=== PATIENT | female | born 1950 | race Caucasian/White ===

== ENCOUNTER → 2020-07-13 11:01 | Outpatient (CLI) | payer MEDICARE, SELFPAY ==
--- NOTE | ~2020-07-13 | MM_ITS ---
EXAMINATION: MM screening [facility] BI [facility] HISTORY: Screening TECHNIQUE: Craniocaudal and mediolateral oblique 3-D tomosynthesis images were obtained and synthetic 2-D images were generated. CAD analysis was submitted and interpreted. COMPARISON: Comparison to multiple prior studies sequentially, with oldest reviewed study dated 07/05. BREAST PARENCHYMAL COMPOSITION: There are scattered areas of fibroglandular density. FINDINGS: There is no evidence of suspicious mass, calcification, or architectural distortion to sugg est malignancy in either breast. There has been no suspicious interval change. IMPRESSION: 1. No mammographic evidence of malignancy. 2. Recommend routine screening mammography in one year. BI-RADS Category 1: Negative Reviewed, dictated and finalized at location A.
== END ==
PROVIDERS: PCP Family Medicine; Visit Provider Family Medicine
DX: Z12.31 Encounter for screening mammogram for malignant neoplasm of breast (principal)
CPT/HCPCS: 77063; 77067

== ENCOUNTER → 2021-09-12 11:58 | Outpatient (CLI) | payer MEDICARE, SELFPAY ==
--- NOTE | ~2021-09-12 | MM_ITS ---
EXAMINATION: MM screening [facility] BI w [facility]ya HISTORY: Screening TECHNIQUE: Craniocaudal and mediolateral oblique 3-D tomosynthesis images were obtained and synthetic 2-D images were generated. CAD analysis was submitted and interpreted. COMPARISON: Comparison to multiple prior studies sequentially, with oldest reviewed study dated 07/05. BREAST PARENCHYMAL COMPOSITION: Breast composed of scattered areas of fibroglandular density FINDINGS: There is no evidence of suspicious mass, calcification, or architectural distortion to sugg est malignancy in either breast. There has been no suspicious interval change. IMPRESSION: 1. No mammographic evidence of malignancy. 2. Recommend routine screening mammography in one year. BI-RADS Category 1: Negative Reviewed, dictated and finalized at location A.
== END ==
PROVIDERS: PCP Family Medicine; Visit Provider Family Medicine
DX: Z12.31 Encounter for screening mammogram for malignant neoplasm of breast (principal)
CPT/HCPCS: 77063; 77067

== ENCOUNTER 2022-08-27 10:00 | Outpatient (RCR) | payer MEDICARE, SELFPAY ==
--- NOTE | 2022-07-30 14:42 | PTOPEVAL1 ---
Assessment and note entered by Connie Rudolph, PT, DPT Evaluation Information Assessment Status Evaluation Diagnosis neck pain Onset 4-5 months Subjective Information Pt reports a 4-5 month history of neck pain with cervical rotation. She states she has a soft tissue knot on her R side that she was told by one provider that it is a lymph node, and by another that it is a knotted muscle. She declines headaches and pain at rest. She reports a 7/10 with active motion, she states this is the only thing that increases her pain. Reported Pain Level Pain Score 0: Self Report Assessment PT Clinical Summary Anna presents to therapy today for her initial evaluation with a diagnosis of neck pain. Today she demonstrates decreased cervical ROM in all direction, increased soft tissue density, and postural abnormalities. Her UE ROM and strength are both WNL and do not affect her pain. Skilled physical therapy services are indicated to improve ROM, mechanics, soft tissue extensibility, and to return to PLOF. Plan of Care Interventions Electrical Stimulation,Hot Pack/Cold Pack,Manual Therapy,Neuro Re-education,Patient/Caregiver Educati,Therapeutic Activities,Therapeutic Exercise PT Services Indicated Yes Treatment Frequency and 1x/wk for 4 wks Duration These treatments will address the objective and functional deficits as defined above. The patient will be advanced safely and appropriately in order for the patient to progress towards his/her prior level of function. Additional exercises will be introduced and as well as a comprehensive home exercise program upon discharge, if needed, ?to ensure carryover of functional gains achieved in the clinic. This treatment plan has been reviewed and agreement upon by the patient.
--- NOTE | 2022-07-31 08:06 | OPREHPOC ---
Outpatient Therapy Plan of Care This is a Multidisciplinary Plan of Care that may contain components documented by all disciplines (PT, OT, and ST.) PT Problem 1 PT Problem #1 Knowledge Deficit PT Goal 1 Goal Pt to be IND with issued HEP Target Visit 4 PT Problem 2 PT Problem #2 Impaired Range of Motion PT Goal 1 Goal Pt to increase active cervical lateral flexion to 25 deg sabi Target Visit 4 PT Goal 2 Goal Pt to increase active cervical rotation ROM to 60 deg sabi Target Visit 4 PT Problem 3 PT Problem #3 Pain PT Goal 1 Goal Pt to report neck pain no greater than 3/10 in the last week Target Visit 4 PT Goal 2 Goal Pt to report 75% improvement in overall symptoms
--- NOTE | 2022-08-15 09:01 | PCPTNOTE ---
Patient called & cancelled scheduled appointment this date, no reason given.
--- NOTE | 2022-08-15 09:33 | PCPTNOTE ---
On 08/15/22, the student Krystle Culp, completed [facility] documentation on this patient. I have reviewed the student's documentation and agree with the findings.
--- NOTE | 2022-08-27 10:32 | PTOPDC ---
Assessment and note entered by Connie Rudolph, PT, DPT Evaluation Information Assessment Status Discharge Diagnosis neck pain Onset 4-5 months Subjective Information Pt states after coming to therapy, the next day she feels pretty good and feel good when she takes Tylenol throughout the day. She states the rest of the time there is just a pressure. She reports 0/10 pain at rest, 3/10 with active movement, and 8/10 at the worst. She states overall she might be a little better but it is not gone. Reported Pain Level Pain Score 0: Self Report Assessment PT Clinical Summary Anna presents to therapy today for her progress report following 4 visits of skilled therapy to treat her diagnosis of neck pain. Today she continues to demonstrate significantly decreased cervical ROM in all direction, increased soft tissue density, and postural abnormalities. She made no improvements in her pain reports now her active cervical motion. Pt would like to try other treatment option, discussed option with pt. She will be discharged from skilled therapy services at this time. Plan of Care PT Services Indicated No
== END 2022-08-28 13:47 | disposition home or self-care (01) ==
LOC: ANHGOSHPT 10:00
PROVIDERS: PCP Family Medicine; Visit Provider Family Medicine
DX: M54.2 Cervicalgia (principal)
CPT/HCPCS: 97110; 97140; 97161

== ENCOUNTER → 2022-09-20 11:36 | Outpatient (CLI) | payer MEDICARE, SELFPAY ==
--- NOTE | ~2022-09-20 | DEXA_ITS ---
Bone Density Report Name: BEVERLEY LARSON Age: 72 Sex: Female Ethnicity: White Date of : 1950 Indication: postmenopausal; screening for osteoporosis; hysterectomy; Referring Provider: WILLIAM CARRILLO Study: Bone densitometry was performed. Exam Date: September 20, 2022 Accession number: [id number] Bone Density: Region BMD T-score Z-score Classification AP Spine (L1-L4) 1.114 0.6 2.9 Normal Femoral Neck (Left) 0.748 -0.9 1.1 Normal Total Hip (Left) 0.926 -0.1 1.5 Normal Femoral Neck (Right) 0.722 -1.1 0.8 Osteopenia Total Hip (Right) 0.833 -0.9 0.8 Normal Total Hip Mean 0.880 -0.5 1.2 Normal World Health Organization criteria for BMD impression classify patients as: Normal (T-score at or above -1.0), Osteopenia (T-score between -1.0 and -2.5), or Osteoporosis (T-score at or below -2.5). 10-year Fracture Risk(1): Major Osteoporotic Fracture 8.8% Hip Fracture 1.1% Reported Risk Factors: [place] (), Neck BMD=0.722, BMI=37.8 (1) FRAX(R) Version 3.08. Fracture probability calculated for an untreated patient. Fracture probability may be lower if the patient has received treatment. Previous Exams: Region Exam Age BMD T-score BMD Change BMD Change Date g/cm2 vs Baseline vs Previous AP Spine(L1-L4) 09/20/2022 72 1.114 0.6 0.034 0.034 07/18/2017 66 1.080 0.3 Total Hip(Left) 09/20/2022 72 0.926 -0.1 -0.040 -0.040 07/18/2017 66 0.966 0.2 Total Hip(Right) 09/20/2022 72 0.833 -0.9 -0.067 -0.067 07/18/2017 66 0.900 -0.3 *Denotes significance at 95% confidence level, LSC for AP Spine = 0.022 g/cm2, LSC for Total Hip = 0.027 g/cm2 Clinical Information Provided by Patient: Has used the following medications: Vitamin D, Desi Has the following medical conditions: Hysterectomy Patient maximum height was 63 Menopause Age: 21 Drinks caffeinated beverages Onset of menses at age 10.5 Number of children 1 Impression: The patient has low bone mass, based on the Right Femoral Neck T-score. The patient has an estimated ten-year risk of hip fracture of 1.1% and an estimated ten-year risk of major fracture of 8.8%, based on the WHO FRAX algorithm. No significant bone loss was observed. Discussion: BONE DENSITY IS LOW AT ONE OR MORE SKELETAL SITES. This patient's lowest T-score is low at one or more skeletal sites. It meets the World Health Organization's (WHO) c
--- NOTE | ~2022-09-20 | MM_ITS ---
EXAMINATION: MM screening [facility] BI w nya HISTORY: Screening mammogram TECHNIQUE: Craniocaudal and mediolateral oblique 3-D tomosynthesis images were obtained and synthetic 2-D images were generated. CAD analysis was submitted and interpreted. COMPARISON: 09/12/2021, 07/13/2020, 07/21/2018 BREAST PARENCHYMAL COMPOSITION: There are scattered areas of fibroglandular density. FINDINGS: No suspicious mass, calcification, or architectural distortion are identified in either tony ast to suggest malignancy. There has been no suspicious interval change. IMPRESSION: 1. No mammographic evidence of malignancy. 2. Recommend routine screening mammography in one year. BI-RADS Category 1: Negative Reviewed, dictated and finalized at location A.
== END ==
PROVIDERS: PCP Family Medicine; Visit Provider Family Medicine
DX: Z12.31 Encounter for screening mammogram for malignant neoplasm of breast (principal); M85.88 Other specified disorders of bone density and structure, other site; Z78.0 Asymptomatic menopausal state
CPT/HCPCS: 77063; 77067; 77080

== ENCOUNTER → 2022-10-11 08:44 | Outpatient (CLI) | payer MEDICARE, SELFPAY ==
--- NOTE | ~2022-10-11 | CT_ITS ---
EXAMINATION: CT cervical spine wo con DATE: 10/11/2022 09:02 INDICATION: Cervical spondylosis without myelopathy or radiculopathy. Neck pain. TECHNIQUE: Computed tomography (CT) of the cervical spine was performed without intravenous contrast. Automated exposure control and iterative reconstruction technique were employed. The dose-length pro duct was 345.68 mGy-cm. COMPARISON: None FINDINGS: There is 2 mm anterolisthesis of C3 on C4 and C7 on T1. There is 3 degrees dextrocurvature of cervical spine. Vertebral body heights are normal. There is mildly decreased disc height at C3-C4, severely decreased disc height from C4-C5 through C6-C7, and moderately decreased disc height at C7- T1. The following disc levels are specifically discussed: C2-C3: There is no uncovertebral joint osteoarthritis. There is severe bilateral facet joint osteoart hritis. There is no neural foraminal stenosis. There is no central canal stenosis. C3-C4: There is mild bilateral uncovertebral joint osteoarthritis. There is severe bilateral facet rodrigo int osteoarthritis. There is mild bilateral neural foraminal stenosis. There is no central canal sten osis. C4-C5: There is severe bilateral uncovertebral joint osteoarthritis. There is mild bilateral facet rodrigo int osteoarthritis. There is mild bilateral neural foraminal stenosis. There is mild central canal st enosis. C5-C6: There is severe bilateral uncovertebral joint osteoarthritis. There is mild bilateral facet rodrigo int osteoarthritis. There is mild bilateral neural foraminal stenosis. There is mild central canal st enosis. C6-C7: There is severe right and moderate left uncovertebral joint osteoarthritis. There is mild bila teral facet joint osteoarthritis. There is mild right neural foraminal stenosis. There is mild centra l canal stenosis. C7-T1: There is no uncovertebral joint osteoarthritis. There is severe bilateral facet joint osteoart hritis. There is mild bilateral neural foraminal stenosis. There is no central canal stenosis. IMPRESSION: 1. Severe cervical spondylosis. Reviewed, dictated and finalized at location E.
== END ==
PROVIDERS: PCP Nurse Practitioner Family; Visit Provider Nurse Practitioner Family
DX: M47.812 Spondylosis without myelopathy or radiculopathy, cervical region (principal)
CPT/HCPCS: 72125

== ENCOUNTER 2023-07-04 08:09 | Emergency (ER) | payer MEDICARE, SELFPAY ==
--- NOTE | ~2023-07-04 | XR_ITS ---
EXAMINATION: XR ankle RT min 3V DATE: 07/04/2023 08:29 INDICATION: Right ankle injury and pain. TECHNIQUE: 4 views of right ankle were obtained. COMPARISON: None. FINDINGS: Bone alignment is normal. No fracture. There is mild midfoot osteoarthritis. There are enth esophytes at the posterior and plantar aspects of calcaneal tuberosity. Ankle soft tissue swelling is noted. IMPRESSION: 1. No fracture. Reviewed, dictated and finalized at location A. IMPRESSION: 1. No fracture.
--- NOTE | 2023-07-04 08:14 | ED.LOWEXIN ---
HPI - Extremity Injury (Lower) General Chief Complaint: Extremity Injury, Lower Stated Complaint: Right Ankle Pain Time Seen by Provider: 07/04/23 08:11 Source: patient Mode of arrival: ambulatory Limitations: no limitations History of Present Illness HPI Narrative: Mariana is a 72-year-old female patient presenting to the clinic today with complaints of right ankle pain x1.5-2 weeks. She reports she tripped and inverted her ankle at that time. States she is having increase in swelling in her ankle and pain is worse at night. States the pain is a throbbing pain with pain radiating up and to the distal fibula. Mild swelling noted over the lateral ankle. Related Data Home Medications Medication Instructions Recorded Confirmed calcium carbonate (Calcium 600) 600 mg PO BID 09/30/22 07/04/23 magnesium chloride 71.5 mg 71.5 mg PO DAILY PRN Pain, Mild 09/30/22 07/04/23 (magnesium chloride) tablet,delayed release (Slow-Mag) Allergies Allergy/AdvReac Type Severity Reaction Status Date / Time penicillin G Allergy Mild Rash Verified 07/04/23 08:28 amoxicillin Allergy Unknown Rash Verified 07/04/23 08:28 Penicillins Allergy Unknown Rash Verified 07/04/23 08:28 Review of Systems Review of Systems: Pertinent positives per HPI. Patient denies any fever, chills, rash, headache, visual changes, dizziness, cough, runny nose, sore throat, shortness of breath, chest pain, palpitations, nausea, vomiting, diarrhea, constipation, abdominal pain, or any urinary issues. 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 She and her live in [place] for winter, return in April. 02/10/ Smoking packs per day: 0.1 Smoking cigarettes per day: 2.0 Years smoked: 5 Smoking pack-years: 0.50 Smoking status: Former smoker Second hand tobacco smoke exposure: No Alcohol intake: never Substance use: never Substance use type: does not use Lack of Transportation: No Lack of Food: Never True Current Housing: I Have Housing Concerned About Future Housing: No Difficulty Paying Gas/Electric Bills: No Difficulty Paying for Meds: No Currently Unemployed: No Education: High School Diploma/GED Difficulty w/ Childcare or Family Care: No Living arrangements: with family Additional living arrangements comments: Occupation/Education: occupation 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 There is no relevant family history pertinent to the patient complaint. Exam Narrative: General: Well-developed, well nourished, in no apparent distress Head: Normocephalic, atraumatic. Cardio: Regular rate and rhythm, s1 and s2 normal, no murmur appreciated. Resp: Clear to auscultation bilaterally, no rhonchi, rales, wheezing or rubs. Musculoskeletal: No deformity swelling noted over the lateral right ankle, tenderness to palpation over the right lateral ankle, pain with dorsal flexion against resistance, valgus, and varus maneuvers however no laxity was seen, grossly normal range of motion, muscle strength strong and equal, peripheral pulse strong, no cyanosis
[2023-07-04 08:20] VITALS: BP 148/80; PULSE 78; RESP 16; TEMP 36.8; O2SAT 100
== END 2023-07-04 08:40 | disposition home or self-care (01) ==
PROVIDERS: Emergency Provider Nurse Practitioner Family; PCP Nurse Practitioner Family
DX: S93.401A Sprain of unspecified ligament of right ankle, initial encounter (principal); X50.9XXA Other and unspecified overexertion or strenuous movements or postures, initial encounter; I10 Essential (primary) hypertension; Z87.891 Personal history of nicotine dependence
CPT/HCPCS: 73610; 99213; G0463

== ENCOUNTER 2023-07-24 09:25 | Outpatient (CLI) | payer MEDICARE, SELFPAY ==
--- NOTE | ~2023-07-24 | MR_ITS ---
MRI of the right ankle Clinical history: Pain Technique: Coronal proton-density and proton-density fat-sat images, axial proton-density and proton- density fat-sat images, and sagittal proton-density and proton-density fat-sat images were acquired. Findings: Syndesmotic ligaments are intact. Anterior and posterior talofibular ligaments, and calcane ofibular ligament are intact. Deltoid ligament is intact. Medial flexor tendons, anterior extensor tendons, and Achilles tendon are intact. There is severe hyp ertrophic partial thickness tearing and tendinosis of the peroneus longus and brevis tendons, without evidence of complete rupture. There is tenosynovitis of the peroneal tendon sheaths as well. There is no osteochondral lesion of the talar dome. Bone marrow signals and joint spaces are relative ly intact. There is focal subchondral cyst at the base of the third metatarsal with focal underlying degenerative change of the third TMT joint. No significant joint effusion. Plantar fascia intact. Normal signal preserved in the sinus Tarsi. Impression: Severe hypertrophic type tendinosis and partial-thickness tearing of the peroneus longus and brevis t endons, without complete rupture. Superimposed tenosynovitis of the peroneal tendon sheaths. Focal degenerative change of the third TMT joint. Reviewed, dictated and finalized at location M. Impression: Severe hypertrophic type tendinosis and partial-thickness tearing of the perone us longus and brevis tendons, without complete rupture. Superimposed tenosynovitis of the peroneal tendon sheaths. Focal degenerative change of the third TMT joint.
== END 2023-07-24 09:26 ==
LOC: MICIMG 09:26
PROVIDERS: PCP Nurse Practitioner Family; Visit Provider Nurse Practitioner
DX: M25.571 Pain in right ankle and joints of right foot (principal); M65.9 Synovitis and tenosynovitis, unspecified
CPT/HCPCS: 73721

== ENCOUNTER 2023-08-11 10:10 | Emergency (ER) | payer MEDICARE, SELFPAY ==
[2023-08-11 10:21] VITALS: BP 128/71; PULSE 78; RESP 18; TEMP 37.8; O2SAT 99
--- NOTE | 2023-08-11 10:38 | ED.URI ---
HPI - URI/Sore Throat General Chief Complaint: Upper Respiratory Infection Stated Complaint: Cough,Sneezing Source: patient and RN notes reviewed Mode of arrival: ambulatory Limitations: no limitations History of Present Illness HPI Narrative: 73 year old female presented for complaint of nasal congestion and drainage, Sneezing, and cough over the past 3 days. She denies shortness of breath, wheezing, nausea, vomiting, diarrhea, fevers or chills. She has not taken anything for symptoms. MD elicited complaint: cough Related Data Home Medications Medication Instructions Recorded Confirmed calcium carbonate (Calcium 600) 600 mg PO BID 09/30/22 08/11/23 magnesium chloride 71.5 mg 71.5 mg PO DAILY PRN Pain, Mild 09/30/22 08/11/23 (magnesium chloride) tablet,delayed release (Slow-Mag) Allergies Allergy/AdvReac Type Severity Reaction Status Date / Time amoxicillin Allergy Intermediate Rash Verified 08/11/23 10:22 Penicillins Allergy Intermediate Rash Verified 08/11/23 10:22 Review of Systems Review of Systems: CONSTITUTIONAL: denies malaise, chills, sweats, fever EYES: Denies visual changes, redness, or discharge ENT: Reports rhinorrhea, congestion, sinus pain,denies otalgia, sore throat CARDIOVASCULAR: Denies chest pain, palpitations, edema RESPIRATORY: Reports cough, post nasal drainage. Denies dyspnea GASTROINTESTINAL: Denies abdominal pain, nausea, vomiting, diarrhea SKIN: Denies rash or itching MUSCULOSKELETAL: deneis myalgia NEUROLOGIC: Denies headache PMFSH Past Medical History Medical History Dermatitis Elevated fasting glucose Essential (primary) hypertension Itch Neck Pain Vitamin D deficiency Surgical History Surgical History H/O: hysterectomy (~1971) Family History Family History Sibling Cerebrovascular accident Family history of diabetes mellitus in first degree relative Mother Family history of diabetes mellitus in first degree relative Social History Social History 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 She and her live in [place] for winter, return in April. 1/1/ caffeine 1 cup coffee Smoking packs per day: 0.1 Smoking cigarettes per day: 2.0 Years smoked: 5 Smoking pack-years: 0.50 Smoking status: Former smoker Second hand tobacco smoke exposure: No Alcohol intake: never Substance use: never Substance use type: does not use Do You Feel Safe in your Home?: Yes Lack of Transportation: No Lack of Food: Never True Current Housing: I Have Housing Concerned About Future Housing: No Difficulty Paying Gas/Electric Bills: No Difficulty Paying for Meds: No Currently Unemployed: No Education: High School Diploma/GED Difficulty w/ Childcare or Family Care: No Living arrangements: with family Additional living arrangements comments: Occupation/Education: occupation 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 nasal congestion noted. TM pearly hutton with dull light reflex bilaterally; no tragal tenderness. Oropharynx Not erythematous without lesions or exudate, no drooling, no hoarseness, no trismus, uvula midline. No tripod positioning, muffled voice, soft palate or pharyngeal wall bulging NECK: Supple. No lymphadenopathy CHEST: Clear to auscultation, breath sounds equal. No wheezing, rhonchi, rales, or stridor. No respiratory distress, speaks in full sentences. HEART: Regular rate and rhythm. No murmur heard. SKIN: Warm, dry, no rash. NEURO: Alert and oriented x3. PSYCH: Normal mood and affect Course Course Emergency Cours
[2023-08-11 12:05] LABS: EDINFLUASCREEN Negative; EDINFLUBSCREEN Negative; EDSTREPNEGPOS1 Presumptive Negative
== END 2023-08-11 11:16 | disposition home or self-care (01) ==
PROVIDERS: Emergency Provider Nurse Practitioner Family; PCP Nurse Practitioner Family
DX: J06.9 Acute upper respiratory infection, unspecified (principal); Z20.822 Contact with and (suspected) exposure to COVID-19; Z87.891 Personal history of nicotine dependence; I10 Essential (primary) hypertension
CPT/HCPCS: 87081; 87426; 87804; 87880; 99213; G0463

== ENCOUNTER 2023-10-29 11:41 | Outpatient (CLI) | payer MEDICARE, SELFPAY ==
--- NOTE | ~2023-10-29 | MM_ITS ---
EXAMINATION: MM screening [facility] BI w nya HISTORY: Screening mammogram TECHNIQUE: Craniocaudal and mediolateral oblique 3-D tomosynthesis images were obtained and synthetic 2-D images were generated. CAD analysis was submitted and interpreted. COMPARISON: 09/20/2022, 09/12/2021, 07/13/2020 BREAST PARENCHYMAL COMPOSITION:Not Dense. There are scattered areas of fibroglandular density. FINDINGS: No suspicious mass, calcification, or architectural distortion are identified in either tony ast to suggest malignancy. There has been no suspicious interval change. IMPRESSION: No mammographic evidence of malignancy. Recommend routine screening mammography in one year. BI-RADS Category 1: Negative Reviewed, dictated and finalized at location .
== END 2023-10-29 11:42 | disposition home or self-care (01) ==
LOC: MICIMG 11:42
PROVIDERS: PCP Nurse Practitioner Family; Visit Provider Nurse Practitioner Family
DX: Z12.31 Encounter for screening mammogram for malignant neoplasm of breast (principal)
CPT/HCPCS: 77063; 77067

== ENCOUNTER 2024-06-02 13:07 | Emergency (ER) | payer MEDICARE, SELFPAY ==
[2024-06-02 13:17] VITALS: BP 152/76; PULSE 70; RESP 16; TEMP 36.9; O2SAT 100
--- NOTE | 2024-06-02 13:26 | ED.FEMALEGU ---
HPI - Female Genitourinary General Chief complaint: Urogenital-Female Stated complaint: UTI Time Seen by Provider: 06/02/24 13:26 Source: patient Mode of arrival: ambulatory Limitations: no limitations History of Present Illness HPI Narrative: Patient presents to [facility] for urgency, frequency, and left flank pain x 3 days. She states that she had the flank pain two years ago when she had a UTI. Denies any burning with urination. Related Data Home Medications ?Medication ?Instructions ?Recorded ?Confirmed ?Last Taken ?Type calcium carbonate (Calcium 600) 600 mg PO BID 09/30/22 06/02/24 Unknown History magnesium chloride 71.5 mg 71.5 mg PO DAILY PRN Pain, Mild 09/30/22 06/02/24 Unknown History (magnesium chloride) tablet,delayed release (Slow-Mag) diclofenac sodium 1 % topical gel 2 g topical QID PRN pain 11/18/23 06/02/24 Unknown History diclofenac sodium 75 mg 75 mg PO DAILY PRN pain 11/18/23 06/02/24 Unknown History tablet,delayed release Allergies Allergy/AdvReac Type Severity Reaction Status Date / Time amoxicillin Allergy Intermediate Rash Verified 06/02/24 13:12 Penicillins Allergy Intermediate Rash Verified 06/02/24 13:12 Review of Systems Review of Systems: CONSTITUTIONAL: Denies body aches, fever, chills, or sweats. EYES: Denies visual changes, redness, or discharge. ENT: Denies rhinorrhea, congestion, sore throat, or otalgia. CARDIOVASCULAR: Denies chest pain, palpitations, or edema. RESPIRATORY: Denies cough or dyspnea. GASTROINTESTINAL: Denies abdominal pain, nausea, vomiting, or diarrhea. : Reported urgency and frequency. Reported left flank pain. GENITOURINARY: Denies dysuria or hematuria. SKIN: Denies rash, itching, or wounds. MUSCULOSKELETAL: Denies back pain, joint pain, or myalgia. NEUROLOGIC: Denies headache, numbness, tingling, or weakness. PSYCH: ?Denies depression or anxiety. All systems reviewed & are unremarkable except as noted in HPI and below PMFSH Past Medical History Medical History Chronic low back pain Essential (primary) hypertension Neck Pain Osteopenia Vitamin D deficiency Surgical History Surgical History H/O: hysterectomy (~1971) Family History Family History Sibling Cerebrovascular accident Family history of diabetes mellitus in first degree relative Mother Family history of diabetes mellitus in first degree relative Social History Social History 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 She and her live in [place] for winter, return in April. 1 cup coffee Smoking packs per day: 0.1 Smoking cigarettes per day: 2.0 Years smoked: 5 Smoking pack-years: 0.50 Smoking status: Former smoker Second hand tobacco smoke exposure: No Smoking end date: 02/10/74 Alcohol intake: never Substance use: never Substance use type: does not use Do You Feel Safe in your Home?: Yes Lack of Transportation: No Lack of Food: Never True Current Housing: I Have Housing Concerned About Future Housing: No Difficulty Paying Gas/Electric Bills: No Difficulty Paying for Meds: No Currently Unemployed: No Education: High School Diploma/GED Difficulty w/ Childcare or Family Care: No Living arrangements: with family Additional living arrangements comments: Occupation/Education: occupation 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 Please see nursing chart for further information. There is no relevant family history pertinent to the presenting complaint. Exam Narrative: GENERAL: Well-appearing, well-nourished, and in no acute distress. HEAD: Normocephalic, atraumatic. CHEST: ?No respiratory distress. Clear to auscultation. HEART: Regular rate and rhythm. No murmur appreciated. Normal peripheral pulses. ABDOMEN: Soft, nontender, nondistended, normal active bowel sounds. MUSCULOSKELETAL: ?No bony tenderness. No CVA tenderness noted. EXTREMITIES: Normal range of motion. No edema. SKIN: Warm, dry, no rash. Capillary refill normal. ?Normal skin turgor. NEURO: No focal deficits. Alert and oriented x3. Gait steady. PSYCH: ?Normal affect. ?No signs of depression or anxiety. Course Course Level of Care: Express Care Visit Vital Signs Vital signs: Vital Signs Temperature 98.5 F 06/02/24 13:17 Pulse Rate 70 06/02/24 13:17 Respiratory Rate 16 06/02/24 13:17 Blood Pressure 152/76 H 06/02/24 13:17 Pulse Oximetry 100 06/02/24 13:17 Oxygen Delivery Room Air 06/02/24 13:17 Temperature 98.5 F 06/02/24 13:17 Pulse Rate 70 06/02/24 13:17 Respiratory Rate 16 06/02/24 13:17 Blood Pressure 152/76 H 06/02/24 13:17 Pulse Oximetry 100 06/02/24 13:17 Oxygen Delivery Room Air 06/02/24 13:17 Reviewed MDM - Female Genitourinary MDM Narrative Medical decision making narrative: Discussed physical exam findings. Antibiotic for UTI. Advised supportive measures and signs/symptoms to go to the ER. Pt is appropriate for outpatient treatment and follow up. Critical Care Time Critical Care Time Critical Care Time: No Discharge Plan Discharge Clinical Impression: Acute UTI Patient Disposition: Home Condition: Stable Instructions: Antibiotic Form, Urinary Tract Infection in Women (DC) Additional Instructions: Take antibiotic as prescribed. You will need to follow up with your PCP for further evaluation and treatment if symptoms persist. Go to the ER for any worsening symptoms or concerns. Patient Language: Upper Sorbian Prescriptions: New sulfamethoxazole-trimethoprim 800-160 mg tablet 1 tablet PO Q12H 3 Days Qty: 6 0RF No Action calcium carbonate [Calcium 600] 600 mg calcium (1,500 mg) tablet 600 mg PO BID Slow-Mag 71.5 mg tablet,delayed release (DR/EC) 71.5 mg PO DAILY PRN (Reason: Pain, Mild) diclofenac sodium 75 mg tablet,delayed release (DR/EC) 75 mg PO DAILY PRN (Reason: pain) diclofenac sodium 1 % gel 2 g topical QID PRN (Reason: pain) amlodipine 5 mg tablet 5 mg PO DAILY Qty: 90 3RF hydrochlorothiazide 12.5 mg tablet 12.5 mg PO DAILY Qty: 90 3RF cholecalciferol (vitamin D3) 50 mcg (2,000 unit) capsule 50 mcg PO DAILY Qty: 1 0RF Follow-up/Referrals: Nica,Rosalina Bailon, [employer] [Primary Care Provider] - Time of Disposition: 13:42
[2024-06-02 13:27] LABS: EDUAAPPEAR Cloudy; EDUABILI Negative (Negative); EDUABLOOD Trace (Negative); EDUACOLOR1 Yellow; EDUAGLUCOSE Negative (Negative); EDUAKETONE Negative (Negative); EDUALEUKO 1+ (Negative); EDUANITRATE Negative (Negative); EDUAPH 6.5; EDUAPROTEIN Negative (Negative); EDUAUROBILI 0.2
== END 2024-06-02 13:56 | disposition home or self-care (01) ==
PROVIDERS: PCP Nurse Practitioner Family
DX: N39.0 Urinary tract infection, site not specified (principal); I10 Essential (primary) hypertension; M85.80 Other specified disorders of bone density and structure, unspecified site; E55.9 Vitamin D deficiency, unspecified; Z87.891 Personal history of nicotine dependence
CPT/HCPCS: 81003; 87086; 99213; G0463